=== PATIENT | female | born 1975 | race Caucasian/White ===

== ENCOUNTER 2018-03-07 12:40 | Emergency (ER) | payer OTHER ==
[2018-03-07] MEDS ORDERED: ONDANSETRON (ODT) 4 MG TAB ODT (13:32)
[2018-03-07] MEDS: ONDANSETRON 4 MG TAB PO (13:33)
== END 2018-03-07 14:19 | disposition home or self-care (01) ==
LOC: FTE 12:40
DX: K52.9 Noninfective gastroenteritis and colitis, unspecified (principal)
CPT/HCPCS: 99283; Z7610